=== PATIENT | female | born 1980 | race Asian ===

== ENCOUNTER 2020-08-24 17:38 | Emergency (ER) | payer OTHER ==
[~2020-08-24] VITALS: Ht 165.1 cm; Wt 55.3 kg
[2020-08-24 18:02] VITALS: BP 122/78; Ht 165.1 cm; Wt 55.3 kg
== END 2020-08-24 19:58 | disposition left against medical advice (07) ==
LOC: ED 17:38
DX: Z53.21 Procedure and treatment not carried out due to patient leaving prior to being seen by health care provider (principal)